=== PATIENT | female | born 2000 | race Native Hawaiian/Other Pacific Islander ===

== ENCOUNTER 2020-10-31 11:40 | Outpatient (CLI) | payer OTHER | END 2020-10-31 22:12 | disposition home or self-care (01) | LOC: LABW 11:40 | PROVIDERS: ATTEND Pediatrics | DX: Z20.828 Contact with and (suspected) exposure to other viral communicable diseases (principal); J02.9 Acute pharyngitis, unspecified | CPT/HCPCS: 87635; U0003 ==